=== PATIENT | female | born 1975 | race Caucasian/White ===

== ENCOUNTER 2024-11-03 23:30 | Emergency (ER) | payer BC, SELFPAY ==
[2024-11-03 23:33] VITALS: BP 175/100
[2024-11-04 01:45] VITALS: BP 170/95; BMI 31.2
--- NOTE | 2024-11-04 02:54 | ED.GENMED ---
History of Present Illness
General
Chief Complaint: Skin Problem
Source: patient
Time Seen by Provider: 11/04/24 02:36
History of Present Illness
History of Present Illness:
48-year-old female presents the emergency room complaining of facial rash. Patient has been experiencing intermittent facial rash for the past 4 to 5 months. She is under the care of a shirt turner. The rash is being treated with topical
antibiotic ointments as well as topical steroids. She has used oral steroids occasionally. Today the patient took Benadryl because she had a more significant outbreak than ever before. Benadryl did not seem to help. Patient states the rash is
confined to her face and does not appear anywhere else. She denies any joint or muscle pain. She has eliminated creams and other potential causes of contact dermatitis. She has not had any testing such as a skin biopsy. She is unaware of what
the working diagnosis is. No shortness of breath.
Past History
Past History
ED Past Medical History: Hyperthyroidism and Other (Pernicious anemia)
ED Past Surgical History: None
Social History
Tobacco: Non-smoker
Alcohol: None
Drug: None
Personal:
Living: with family
Employment: Employed
Family History
Family History: Hypertension
Phy Exam
Physical Exam
Physical Exam:
General: Awake, Alert, Oriented X3. No acute distress.
Vitals: unremarkable
Head: Atraumatic
Eyes: Pupils equal, EOMI
Throat: Airway intact, no exudates
Neck: Trachea midline
Lungs: Clear and equal b/l
Heart: Regular rate, no murmurs
Neuro: Nonfocal
Skin: Warm, dry, significant erythema which is nonblanching noted inferior to the both eyes starting from about the medial canthus around the lateral aspect of the lower lid. Mild lacy urticarial type erythema on the face.
Extremities: pulses equal b/l, no edema
Course
Orders/Labs/Results
Orders:
Orders
11/04/24 03:01
Diphenhydramine [Benadryl] 25 mg IM NOW STA
Famotidine [Pepcid] 20 mg PO NOW STA
Prednisone [Deltasone] 50 mg PO NOW STA
Vital Signs
Initial and Last Documented VS:
Initial Vital Signs
Temp Pulse Resp BP Pulse Ox
98.3 F 92 20 175/100 96
11/03/24 23:33 11/03/24 23:33 11/03/24 23:33 11/03/24 23:33 11/03/24 23:33
Last Documented Vital Signs
Temp Pulse Resp BP Pulse Ox
98.3 F 83 20 170/95 98
11/03/24 23:33 11/04/24 03:18 11/04/24 03:18 11/04/24 01:45 11/04/24 03:18
MDM/Problems Addressed
Differential Diagnosis Includes:
Dermatitis, lupus,
MDM/Problems Addressed:
Because of the patient's rash is not readily clear but the rash does not seem consistent with a severe systemic illness necessitating hospitalization. Certainly her shirt turner been more suited to identifying this rash. From an acute care
standpoint I think it is reasonable to start a course of oral steroids. This does not appear infectious so I do not believe oral antibiotics would be helpful. Close follow-up with outpatient dermatology.
*Pulse Oximetry
SaO2: 96
Oxygen Mode of Delivery: Room air
Patient hypoxic: no
*Critical Care Note
Total Time (30-74mins, 75-104mins- exclusive of procedures): Not Applicable
ED Attending Note
-
Portions of this chart may have been created with voice recognition software.� Occasional wrong word or��sound alike� substitutions may have occurred due to the inherent limitations of voice recognition software.
Discharge Plan
Departure
Patient Disposition: Home (Routine Discharge)
Date of Disposition: 11/04/24
Time of Disposition: 03:02
Patient with high blood pressure during this ER visit?: Yes
Condition: Good
Discharge Problem:
Dermatitis
Instructions: Skin Rash (DC), BLOOD PRESSURE
Prescriptions:
New
prednisone 20 mg tablet
40 mg PO DAILY Qty: 8 0RF
No Action
ranitidine HCl [Zantac 75] 75 MG tablet
75 mg PO DAILY Qty: 20 0RF
diphenhydramine HCl [Banophen] 25 MG capsule
25 mg PO Q4HPRN PRN (Reason: rash, itching) Qty: 10 0RF
prednisone 50 MG tablet
50 mg PO DAILY Qty: 5 0RF
epinephrine [EpiPen] 0.3 MG/0.3/SYRINGE auto-injector
0.3 mg IM .STAT PRN (Reason: difficulty Breathing) Qty: 1 0RF
Referrals:
NONE,* [Family Provider, Internal Medicine]
Interventions
Interventions:
*Risk Screen - Suicide Last Done: 11/03/24 23:33
*General Assessment Last Done: 11/03/24 23:33
*Neglect/Abuse Screening Last Done: 11/03/24 23:33
*ED- Fall Risk Assessment Last Done: 11/03/24 23:33
*ED COVID-19 Vaccine History Last Done: 11/03/24 23:33
*Nursing Disposition Last Done: 11/04/24 03:18
ED-Skin Assessment Last Done: 11/04/24 03:16
Discharge Date and Time
Discharge Date/Time: 11/04/24 03:18
Print Language: CZECH
[2024-11-04] MEDS: PEPCID 20 MG PO (03:09)
[2024-11-04] MEDS: BENADRYL 25 MG IM (03:09)
[2024-11-04] MEDS: DELTASONE 50 MG PO (03:09)
== END 2024-11-04 03:18 | disposition home or self-care (01) ==
LOC: EMR 23:30
PROVIDERS: EMERGENCY PHYSICIAN Emergency Medicine
DX: L30.9 Dermatitis, unspecified (principal)
CPT/HCPCS: 96372; 99284